=== PATIENT | female | born 1960 | race Caucasian/White ===

== ENCOUNTER 2017-10-10 01:17 | Emergency (ER) | payer OTHER ==
[~2017-10-10] VITALS: Ht 160 cm; Wt 90.7 kg
[~2017-10-10 01:17] MED LIST: BACTRIM DS TAB1 EACH; HYDROXYZINE HCL25 M2; IBUPROFEN 200200 M1 PO
[2017-10-10] MEDS ORDERED: CARDURA4 MG PO (01:33)
[2017-10-10 02:01] LABS: ABSOLUTE BASOPHILS 0.1 thou/uL (0.0-0.2); ABSOLUTE EOSINOPHILS 0.2 thou/uL (0.0-0.7); ABSOLUTE LYMPHOCYTES 3.1 thou/uL (0.8-5.3); ABSOLUTE MONOCYTES 0.8 thou/uL (0.0-1.2); ABSOLUTE NEUTROPHILS 4.3 thou/uL (1.6-8.1); BASOPHILS 1.3 %; EOSINOPHILS 2.3 %; HEMATOCRIT 41.8 % (37.0-47.0); HEMOGLOBIN 14.2 gm/dL (12.0-15.0); LYMPHOCYTES 36.3 %; MCH 30.2 pg (26.0-34.0); MCV 88.9 fL (80.0-100.0); MONOCYTES 9.3 %; MPV 7.5 fl. (7.2-11.1); NUCLEATED RBCS 0 /100WBC; PLATELET COUNT* 229 thou/uL (150-400); POLYS 50.8 %; RDW-CV 13.7 % (10.5-14.5); WBC 8.5 thou/uL (4.0-11.0)
[2017-10-10 02:29] LABS: ANION GAP 6 mmol/L (7-16); BUN 12 mg/dL (7-18); CALCIUM 8.3 mg/dL (8.5-10.1); CHLORIDE 105 mmol/L (98-107); CO2 28 mmol/L (21-32); CREATININE 0.8 mg/dL (0.6-1.3); GLUCOSE 108 mg/dL (70-99); POTASSIUM 3.9 mmol/L (3.5-5.1); SODIUM 139 mmol/L (136-145)
[2017-10-10 02:36] LABS: ALBUMIN 3.8 g/dL (3.4-5.0); ALKALINE PHOSPHATASE 85 U/L (46-116); SGOT 22 U/L (15-37); SGPT 36 U/L (30-65); TOTAL BILIRUBIN 0.3 mg/dL (<0.1-1.0); TOTAL PROTEIN 7.4 g/dL (6.4-8.2); TROPONIN-I LEVEL <0.06 ng/mL (<0.06)
[2017-10-10 02:53] LABS: URINE BILIRUBIN NEGATIVE (Negative); URINE BLOOD NEGATIVE (Negative); URINE CLARITY CLEAR; URINE COLOR YELLOW; URINE GLUCOSE-RANDOM NEGATIVE (Negative); URINE LEUKOCYTES-REFLEX NEGATIVE (Negative); URINE NITRITE-REFLEX NEGATIVE (Negative); URINE PROTEIN NEGATIVE (Negative); URINE SPECIFIC GRAVITY 1.015 (1.005-1.030); URINE UROBILINOGEN 0.2 E.U./dl (0.2-1.0)
[2017-10-10 02:59] LABS: URINE KETONES NEGATIVE (Negative)
[2017-10-10 03:31] VITALS: BP 141/69
--- NOTE | 2017-10-10 10:25 | EKG ---
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: : 1960 Requested By: Jenni Moreno Order Number: [id number] MD: Brenton Mcghee Measurements Intervals [place] Rate: 57 P: -2 MT: 153 QRS: 23 QRSD: 88 T: 44 QT: 456 QTc: 444 Interpretive Statements Sinus rhythm Low voltage, precordial leads Borderline T abnormalities, anterior leads Compared to ECG 08/06/2005 13:34:06 T-wave abnormality now present Electronically Signed On 10-10-2017 10:25:43 CDT by Brenton Mcghee [email or web address] <ELECTRONICALLY SIGNED> By: Brenton Mcghee MD, [facility] 10/10/17 1025 0233 0233 Brenton Mcghee MD, [facility] /EPI
== END 2017-10-10 03:35 | disposition home or self-care (01) ==
LOC: M.ERS 01:17
PROVIDERS: Emergency Medicine
DX: I16.0 Hypertensive urgency (principal); J45.909 Unspecified asthma, uncomplicated; Z88.1 Allergy status to other antibiotic agents; Z90.49 Acquired absence of other specified parts of digestive tract

== ENCOUNTER → 2017-11-17 | Outpatient (CLI) | payer OTHER ==
[~2017-11-17] MED LIST changes: +CARDURA4 MG PO
== END ==
LOC: M.RAD 09:15
DX: Z12.31 Encounter for screening mammogram for malignant neoplasm of breast (principal); J45.909 Unspecified asthma, uncomplicated; Z90.49 Acquired absence of other specified parts of digestive tract

== ENCOUNTER → 2019-04-19 | Outpatient (CLI) | payer OTHER | LOC: M.RAD 16:14 | DX: Z12.31 Encounter for screening mammogram for malignant neoplasm of breast (principal) ==

== ENCOUNTER 2019-12-31 07:36 | Observation (INO) | payer OTHER ==
[~2019-12-31] VITALS: Ht 152.4 cm; Wt 99.3 kg
--- NOTE | ~2019-12-31 | EKG ---
[place] [address] ELECTROCARDIOGRAM REPORT Name: JOAN HUSTON Room: [address] M.R.#: [id number] Admission: 12/31/19 Attend Phys: Meek Pop Discharge: Date of : 56 Date of Service: 12/31/19 1210 Report #: [id number] THIS REPORT FOR: //name// [facility] Test Date: 2019-12-31 Test Time: 12:10:49 Pat Name: JOAN HUSTON Department: Room: [facility] Gender: F Licensed Marriage And Family Therapist: ORLY : 1960 Requested By: Guicho Braga Order Number: [id number] Reading MD: Measurements Intervals [place] Rate: 51 P: 2 [place]: 139 QRS: 20 QRSD: 84 T: 49 QT: 461 QTc: 425 Interpretive Statements Sinus rhythm Low voltage, precordial leads Compared to ECG 10/10/2017 02:33:03 T-wave abnormality no longer present [email or web address] By: 09 1210 Epiphany Epiphany, /EPI
[2019-12-31 08:50] VITALS: BP 140/67
[2019-12-31 08:52] LABS: HEMATOCRIT 42.8 % (37.0-47.0); HEMOGLOBIN 14.5 gm/dL (12.0-15.0); MCH 29.5 pg (26.0-34.0); MCV 86.7 fL (80.0-100.0); MPV 7.2 fl. (7.2-11.1); RBC 4.94 mil/uL (4.20-5.00); RDW-CV 13.1 % (10.5-14.5); WBC 7.9 thou/uL (4.0-11.0)
[2019-12-31] MEDS ORDERED: LOSARTAN-HCTZ1 EAC3 PO (08:52)
[2019-12-31] MEDS ORDERED: ASA81BEC PO (08:52)
[2019-12-31] MEDS ORDERED: LIPITOR10 MG PO (08:54)
[2019-12-31] MEDS ORDERED: NORVASC 2.5 MG2.5 M1 PO (08:56)
[2019-12-31 09:00] LABS: ANION GAP 9 mmol/L (7-16); BUN 10 mg/dL (7-18); CALCIUM 8.4 mg/dL (8.5-10.1); CHLORIDE 105 mmol/L (98-107); CO2 27 mmol/L (21-32); CREATININE 0.7 mg/dL (0.6-1.3); GLUCOSE 108 mg/dL (70-99); POTASSIUM 3.9 mmol/L (3.5-5.1); SODIUM 141 mmol/L (136-145)
[2019-12-31 09:04] LABS: APTT 23.8 Seconds (25.0-31.3); PROTIME 10.5 Seconds (9.20-11.50)
[2019-12-31 09:05] LABS: ALBUMIN 3.7 g/dL (3.4-5.0); ALKALINE PHOSPHATASE 109 U/L (46-116); CHOLESTEROL 149 mg/dL (<200); HDL CHOLESTEROL 46 mg/dL (>40); LDL CHOLESTEROL 73 mg/dL (<100); SERUM ASSESSMENT Clear; SGOT 23 U/L (15-37); SGPT 36 U/L (30-65); TC:HDL 3.2 Ratio (Not establshd); TOTAL BILIRUBIN 0.3 mg/dL (<0.1-1.0); TOTAL PROTEIN 7.5 g/dL (6.4-8.2); TRIGLYCERIDE 152 mg/dL (<150); VLDL 30 mg/dL (<40)
--- NOTE | 2019-12-31 13:17 | CARD ---
[address] [address] CARDIAC CATH REPORT Name: JOAN HUSTON Room: [address] Elizabeth Lassiter#: [id number] Admission: 12/31/19 Attend Phys: Guicho Braga MD, Discharge: Date of : 56 Report #: [id number] THIS REPORT FOR: //name// cc: Michael Mujica Gregg R. DO ~ APPROVED REPORT Study performed: 12/31/2019 09:19:30 Patient Details Patient Status: Out-Patient Room #: The patient is a 59 year-old female Event Personnel Guicho Braga Music Copyist, Sammi Meza RN Rubber Mill Tender, Sulema Hernandez RTR Scrub, Annabel Camara RTR Monitor Procedures Performed Art Access - R femoral artery, Left Heart Cath w/or w/o Coronaries LHC, JOSE ALBERTO Place w/wo Plasty Single RCA , JOSE ALBERTO Place w/wo Plasty Single LAD , Hemostasis w/ Angioseal Indication Unstable angina Risk Factors Hypercholesterolemia, Hypertension Admission/Lab Medications/Medications given during procedure Angiomax IV 15 ml, Angiomax Drip IV 34.74 ml per hr, Nitroglycerin IC 200 mcg, Effient PO 60 mg, Aspirin PO 162 mg Procedure Narrative The patient was brought electively to the Cardiac Catheterization Laboratory and was prepped and draped in a sterile manner. The right femoral was infiltrated with 2% Lidocaine subcutaneous anesthesia. A 6F [place] sheath was inserted into the right femoral artery. Coronary angiography was performed using coronary diagnostic catheters. The right coronary system was accessed and visualized with a 6F 3DRC catheter. The left coronary system was accessed and visualized with a 6F JL4 catheter. The left ventricle was accessed and visualized with a 6F Straight Pigtail catheter. Left ventricular/Aortic Valve gradient assessed via catheter pullback. Left ventriculogram was performed in [place] [address] CARDIAC CATH REPORT Name: ROBELJOAN Room: [address] M.R.#: [id number] Admission: 12/31/19 Attend Phys: Guicho Braga MD, Discharge: Date of : 56 Report #: [id number] femoral angiogram was performed . Closure device was deployed with a 6 Fr Angioseal STS. The patient tolerated the procedure well and there were no complications associated with the procedure. There was no hematoma. Intraoperative Conscious Sedation Sedation start time: 09:38 Case end Time: 10:49 Fentanyl 25 mcg Versed 1 mg Fluoro Time: 20.9 minutes Dose: DAP 068508 cGycm2 2771 mGy Contrast Type and Amount: Visipaque 325 ml Diagnostic Cath Left Main 0% narrowing LAD Tandem 40 and 80% mid LAD stenosis Circumflex 0% narrowing Right Coronary Large dominant vessel with 80% ostial narrowing followed by 40% mid and distal narrowings Left Ventriculography The left ventricle is normal in size with normal contractility. The left ventricular ejection fraction is estimated to be 65%. Left ventricular wall motion abnormalities are not present. There is no mitral insufficiency. Hemodynamics The aortic pressure is 145/59 mmHg with a mean of 87 mmHg. The left ventricular pressure is 145/3 mmHg with a mean of mmHg. The left ventricular end diastolic pressure is 15 mmHg. There was no gradient across the aortic valve upon pullback. PCI Technique Lesion Anticoagulation was achieved with Angiomax. Patient was preloaded with Angiomax IV 15 ml. Percutaneous coronary intervention was performed on the ostial to proximal right coronary artery. The lesion stenosis prior to intervention was 80% with SARAH 3 flow. A 6FR 3DRC SH Guide Catheter was used to engage the right ostium. A BMW 190cm Interventional Guidewire was used to cross the lesion. BALLOON DILATION A Balloon catheter Trek RX 3.0 X 8 was inserted and inflated up to 14.00atm for 14seconds. Additional Inflation: 18.00atm for 17seconds. Additional Inflation: 18.00atm for 13seconds. [place] [address] CARDIAC CATH REPORT Name: JOAN HUSTON Room: [address] M.RVerenice#: [id number] Admission: 12/31/19 Attend Phys: Guicho Braga MD, Discharge: Date of : 56 Report #: [id number] STENT DEPLOYMENT A drug-eluting stent Xience Amrita 3.5X8mm was inserted and inflated up to 14.00atm for 20seconds. Additional Inflation: 15.00atm for 14seconds. Final angiography reveals 10 % stenosis with SARAH 3 flow. COMMENTS The PCI to the ostium of the right coronary artery was technically difficult by virtue of the aortoostial location and associated difficulty in precise positioning for stent deployment. PCI Technique Lesion 2 Percutaneous Coronary Intervention was performed on the mid left anterior descending artery segment. Patient was preloaded with Angiomax IV 15 ml. The lesion stenosis prior to intervention was 80% with SARAH 3 flow. A 6FR XB 3.0 100CM Guide Catheter was used to engage the lm ostium. A BMW 190cm Interventional Guidewire was used to cross the lesion. Stent Deployment A drug-eluting stent Dillon RX Stent 2.0X8mm was inserted and inflated up to 10.00atm for 12seconds. Additional Inflation: 12.00atm for 8seconds. Additional Inflation: 14.00atm for 11seconds. Final angiography reveals 0 % stenosis with SARAH 3 flow. Conclusion 1. Significant multivessel coronary artery disease characterized by the following: A tandem 40 and 80% mid LAD stenoses B 80% ostial right coronary stenosis followed by 40% mid and distal right coronary narrowings C normal left main and circumflex coronary artery 2. Normal left ventricular systolic function, estimated ejection fraction being of 65% 3. Mild elevation of left ventricular end-diastolic pressure at rest [address] [place] [address] CARDIAC CATH REPORT Name: JOAN HUSTON Room: [address] Elizabeth M.R.#: [id number] Admission: 12/31/19 Attend Phys: Guicho Braga MD, Discharge: Date of : 56 Report #: [id number] 4. Successful PCI with deployment of a drug-eluting stent at the site of 80% aorto- ostial right coronary stenosis with 10% residual narrowing and SARAH-3 flow to the distal vessel 5. Successful PCI with deployment of a drug-eluting stent at site of 80% focal mid LAD stenosis with 0% residual narrowing and SARAH-3 flow to the distal vessel Recommendations Cardiac Risk Reduction Program Aggressive Medical Therapy Medications Administered Aspirin (any) Prasugrel Diagnostic Cath Approved by: Guicho Braga MD Date/Time: 12/31/2019 13:13:26 <ELECTRONICALLY SIGNED> By: Guicho Braga MD, [facility] 12/31/19 1316 15 1316Guicho Braga MD, FACC /INF
--- NOTE | 2019-12-31 16:09 | D ---
[address] [address] DISCHARGE SUMMARY Name: JOAN HUSTON Room: [address] Elizabeth Lassiter#: [id number] Admission: 12/31/19 Attend Phys: Guicho Braga MD, Discharge: Date of : 56 Report #: [id number] THIS REPORT FOR: //name// cc: Michael Mujica Gregg R. DO ~ CC: Michael Braga The patient to be discharged on 01/01/2020. She will be discharged from 209. FINAL DISCHARGE DIAGNOSES: 1. Unstable angina. 2. Coronary artery disease. 3. Status post percutaneous coronary intervention of the ostium of the right coronary artery in the mid left anterior descending. 4. Hypertension. 5. Hypercholesterolemia. 6. Positive family history for premature coronary artery disease. 7. Exogenous obesity. 8. Markedly increased coronary calcium score. PROCEDURES: 12/31/2019 -- left heart catheterization, left ventriculography, selective coronary arteriography and percutaneous coronary intervention to the ostium of the dominant right coronary artery in the mid LAD. HOSPITAL COURSE: The patient is a very pleasant 59-year-old female who presented to the office complaining of discomfort in the neck and teeth with exertion. She had a number of risk factors for coronary artery disease including hypertension, hypercholesterolemia, and a very positive family history for premature coronary artery disease. She also had a coronary calcium score of slightly less than 600, predominantly in the distributions of the right coronary artery and LAD. In that context, I elected to proceed with cardiac catheterization on 12/31/2019. That study revealed 80% ostial proximal right coronary stenosis with 40% mid and distal narrowings. There was 80% mid LAD stenosis and no significant narrowings of the left main or circumflex. LV function was normal with ejection fraction of 60-65%. Given this data, I elected to perform percutaneous coronary intervention, deploying one 3.5 x 8 Xience drug-eluting stent in the ostial proximal right coronary artery with 10% residual narrowing and one 2.0 x 10 Dillon drug-eluting stent in the mid LAD with 0% residual narrowing. The patient did well postprocedurally. She had a transient vagal spell, [place] [address] DISCHARGE SUMMARY Name: JOAN HUSTON Room: [address] Elizabeth Aceves.#: [id number] Admission: 12/31/19 Attend Phys: Guicho Braga MD, Discharge: Date of : 56 Report #: [id number] EKG post-procedurally was normal. There was good hemostasis at the right femoral site of catheterization. She ambulated in the hallways without difficulty. DISCHARGE MEDICATIONS: The patient was discharged to home on 01/01/2020 on the following medications: Prasugrel or Effient 10 mg daily, aspirin 81 mg daily, amlodipine 5 mg daily, atorvastatin 10 mg daily, doxazosin 1 mg daily, losartan/hydrochlorothiazide 100/25 one tablet daily. I will plan to see her in followup in 3-4 weeks. Therefore, the patient is discharged to home in stable condition on the aforementioned medications with followup as described above. <ELECTRONICALLY SIGNED> By: Guicho Braga MD, FACC 12/31/19 1609 1512 1531Guicho Braga MD, FACC /nt
--- NOTE | 2019-12-31 17:05 | EKG ---
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
--- NOTE | 2019-12-31 17:05 | EKG ---
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
[2019-12-31 18:39] VITALS: BP 140/67
[2019-12-31 20:00] VITALS: BP 116/48
--- NOTE | 2019-12-31 20:21 | NUR ---
AT 1315 PT C/O "FEELING HOT/SWEATY/SICK TO MY STOMACH". BP 88/36 HEART RATE 55. PT DIAPHORETIC, PALE. RIGHT GROIN SITE DRY/INTACT DRESSING, NO HEMATOMA PALPATED. PT PLACED IN TRENDELENBURG POSITION, COOL WASH CLOTH TO FACE AND NS WIDE OPEN X 15 MINUTES. WINDMILL TECHNICIAN NOTIFIED. PT ALSO CHEST PAIN. STAT EKG DONE AND SHOWN TO ANANTH CORTEZ. NO ACUTE CHANGES. AT 1330 PT STATES "I am feeling better". BP 119/42 WITH HEART RATE 55. DR CARBAJAL ON UNIT AT 1345 TO SEE PATIENT. WILL CONTINUE IV FLUIDS. AT 1700 PT OUT OF BED. STANDBY ASSIST TO RECLINER. PT REMAINS ALERT, ORIENTED AND COOPERATIVE. GROIN DRESSING RIGHT SIDE IS DRY AND INTACT. PT HAS TOLERATED DIET. 1915 REPORT AND CARES TO DEPARTMENT SECRETARY
[2020-01-01] VITALS: BP 121/59
--- NOTE | 2020-01-01 02:32 | NUR ---
PT ALERT ORIENTED. TELEMETRY SHOWS SB. R GROIN DRSG D/I. NO BRUSIN OR HEMATOMA NOTED. DENIES CP. TYLENOL GIVEN FOR R GROIN PAIN. NS AT 100MLS/HR. WILL CONTINUE TO MONITOR.
[2020-01-01 04:00] VITALS: BP 120/45
[2020-01-01 04:24] LABS: HEMATOCRIT 38.1 % (37.0-47.0); HEMOGLOBIN 12.7 gm/dL (12.0-15.0); MCH 29.3 pg (26.0-34.0); MCHC 33.2 g/dL (28.0-37.0); MCV 88.4 fL (80.0-100.0); MPV 7.4 fl. (7.2-11.1); RBC 4.32 mil/uL (4.20-5.00); RDW-CV 13.5 % (10.5-14.5); WBC 9.7 thou/uL (4.0-11.0)
[2020-01-01 05:00] LABS: ALBUMIN 3.1 g/dL (3.4-5.0); CALCIUM 7.9 mg/dL (8.5-10.1); CREATININE 0.6 mg/dL (0.6-1.3); POTASSIUM 3.9 mmol/L (3.5-5.1); TOTAL BILIRUBIN 0.4 mg/dL (<0.1-1.0); TOTAL PROTEIN 6.2 g/dL (6.4-8.2)
[2020-01-01 06:42] LABS: TROPONIN-I LEVEL 1.3 ng/mL (<0.06)
[2020-01-01 08:00] VITALS: BP 128/44
[2020-01-01] MEDS ORDERED: EFFIENT10 MG PO (08:59)
[2020-01-01 09:19] VITALS: BP 128/44
--- NOTE | 2020-01-01 14:29 | NUR ---
PT VS CHARTED, SB ON TELE, ROOM AIR, UP AD NORA, CATH SITE CLEAN, DRY & INTACT- NO HEMATOMA, HOURLY ROUNDING PERFORMED, DC ORDERS GIVEN, PATIENT DISCHARGED- PACKET GIVEN QUESTIONS ANSWERED, SCRIPTS, CARE NOTES AND APPT CARDS GIVEN, TELE MONITOR AND IV REMOVED WITHOUT COMPLICATION, PATIENT TAKEN IN WC BY NURSING STAFF TO ER EXIT, PICKED UP IN CAR BY SON
== END 2020-01-01 10:52 | disposition home or self-care (01) ==
LOC: M.CL 07:36 → M.TBA-CV 10:13 → M.2W 11:15
PROVIDERS: ADMIT Internal Medicine; ATTEND Internal Medicine
DX: I25.110 Atherosclerotic heart disease of native coronary artery with unstable angina pectoris (principal); I10 Essential (primary) hypertension; E78.00 Pure hypercholesterolemia, unspecified; E66.09 Other obesity due to excess calories; Z68.41 Body mass index [BMI] 40.0-44.9, adult; E83.52 Hypercalcemia; Z79.82 Long term (current) use of aspirin; Z79.899 Other long term (current) drug therapy

== ENCOUNTER 2020-06-28 11:21 | Emergency (ER) | payer OTHER ==
[~2020-06-28] VITALS: Ht 160 cm; Wt 95.3 kg
[~2020-06-28 11:21] MED LIST changes: +ASA81BEC PO; +EFFIENT10 MG PO; +LIPITOR10 MG PO; +LOSARTAN-HCTZ1 EAC3 PO; +NORVASC 2.5 MG2.5 M1 PO
[2020-06-28] MEDS ORDERED: CLONIDINE HCL0.1 M1 PO (11:46)
[2020-06-28] MEDS ORDERED: FLONASE 0.05%50 MCG NARES (11:46)
[2020-06-28] MEDS ORDERED: NEXIUM20 M1 PO (11:47)
[2020-06-28] MEDS ORDERED: DICLOFENAC SODI75 MG PO (11:48)
[2020-06-28 11:59] LABS: HEMATOCRIT 38.4 % (37.0-47.0); HEMOGLOBIN 13.1 gm/dL (12.0-15.0); MCH 29.9 pg (26.0-34.0); MCHC 34.1 g/dL (28.0-37.0); MCV 87.7 fL (80.0-100.0); MPV 6.8 fl. (7.2-11.1); RBC 4.38 mil/uL (4.20-5.00); RDW-CV 13.7 % (10.5-14.5)
[2020-06-28] MEDS ORDERED: PROCTOCREAM-HC30 GM RECTAL (12:05)
[2020-06-28 12:14] VITALS: BP 173/70
== END 2020-06-28 12:14 | disposition home or self-care (01) ==
LOC: M.ERS 11:21
PROVIDERS: Nurse Practitioner Family
DX: K64.5 Perianal venous thrombosis (principal); Z88.1 Allergy status to other antibiotic agents